=== PATIENT | female | born 1960 | race Caucasian/White ===

== ENCOUNTER 2017-12-21 21:48 | Emergency (ER) | payer BC ==
--- NOTE | 2017-12-21 21:54 | ER Report ---
History and Physical Time Seen By MD: 21:53 HPI/ROS CHIEF COMPLAINT: Headache, back pain HISTORY OF PRESENT ILLNESS: 57-year-old male with multiple medical problems traveling here to [facility] from [place] has been having a dull headache for 2 days. He's noting back pain in his thighs and lower back. He describes a dull aching. There is well. They seem to coincide. Patient notes no fever. He notes some mild photophobia and nausea. Patient's never had migraines. Patient states the headache began before the trip. He is grossly elevated blood pressure reading tonight. Was previously on medication for blood pressure but when he retired from work, his blood pressure dropped and his doctor stopped the medication. Patient notes no rhinitis, sore throat or coughing. Patient notes no chest pain or shortness of breath. Patient notes no leg swelling or calf pain. Patient took ibuprofen 800 mg without improvement of his symptoms. Patient's here for a wedding that will occur on Tuesday in 3 days. He wants to get checked out to make sure nothing makes his plans go to bad. REVIEW OF SYSTEMS: Respiratory: No cough, no dyspnea. Cardiovascular: No chest pain, no palpitations. Gastrointestinal: No vomiting, no abdominal pain. Musculoskeletal: As above Allergies: Coded Allergies: No Known Drug Allergies (Unverified , 12/21/17) Home Meds Active Scripts Tramadol Hcl (TRAMADOL HCL) 50 Mg Tablet, 1 TAB PO Q6H for PAIN, #15 MG TAKE ONE TABLETS BY MOUTH EVERY SIX HOURS NEEDED Prov:TAISHA WHYTE DO 12/21/17 Reported Medications Aspirin (ASPIRIN) 81 Mg Tab.chew, 81 MG PO QDAY, TAB.CHEW 12/21/17 Atorvastatin (LIPITOR) 80 Mg Tab, 1 TAB PO QDAY, TAB 12/21/17 Reviewed Nurses Notes: Yes Old Medical Records Reviewed: Yes Constitutional Vital Sign - Last 24 Hours 12/21/17 12/21/17 12/21/17 12/21/17 21:54 21:55 21:57 22:00 Temp 99.2 Pulse 96 Resp 17 B/P (MAP) 214/119 (150) 214/119 179/121 (140) 186/110 (135) Pulse Ox 96 O2 Delivery Room Air 12/21/17 12/21/17 12/21/17 22:30 22:48 23:00 Pulse 99 B/P (MAP) 162/98 (119) 154/96 (115) Pulse Ox 93 Physical Exam Vital signs stable, low-grade fever 99.2, pulse ox normal General Appearance: The patient is alert, has no immediate need for airway protection and no current signs of toxicity. Skin warm, dry, pink HEENT: Pupils equal and round no injection. Oropharynx without redness or exudate Respiratory: Chest is non tender, lungs are clear to auscultation. No chest wall tenderness Cardiac: regular rate and rhythm, no murmur Gastrointestinal: Abdomen is soft and non tender, no masses, bowel sounds normal. No CVA tenderness Musculoskeletal: Neck: Neck is supple and non tender. No lymphadenopathy, no meningismus Extremities have full range of motion and are non tender. No edema, no calf tenderness Skin: No rashes or lesions. DIFFERENTIAL DIAGNOSIS: After history and physical exam differential diagnosis was considered for back pain including but not limited to muscular pain, herniated disc, spine fracture, intra-abdominal causes and urinary tract infection. Additionally,headache including but not limited to subarachnoid hemorrhage, migraine headache, tension headache and infectious causes such as meningitis, pharyngitis and sinusitis. Medical Decision Making Data Points Result Diagram: 12/21/17215412/21/172154 Laboratory Hematology Test 12/21/17 21:55 12/21/17 22:20 Red Blood Count 5.23 M/uL (4.17-5.56) Mean Corpuscular Volume 86.1 fL (80.0-96.0) Mean Corpuscular Hemoglobin 30.2 pg (26.0-33.0) Mean Corpuscular Hemoglobin Concent 35.0 g/dL (32.0-36.0) Red Cell Distribution Width 14.1 % (11.5-14.5) Mean Platelet Volume 8.2 fL (7.2-11.1) Neutrophils (%) (Auto) 53.3 % (39.4-72.5) Lymphocytes (%) (Auto) 34.8 % (17.6-49.6) Monocytes (%) (Auto) 8.0 % (4.1-12.4) Eosinophils (%) (Auto) 3.6 % (0.4-6.7) Basophils (%) (Auto) 0.3 % (0.3-1.4) Nucleated RBC Relative Count (auto) 0.1 /100WBC Neutrophils # (Auto) 4.4 K/uL (2.0-7.4) Lymphocytes # (Auto) 2.9 K/uL (1.3-3.6) Monocytes # (Auto) 0.7 K/uL (0.3-1.0) Eosinophils # (Auto) 0.3 K/uL (0.0-0.5) Basophils # (Auto) 0.0 K/uL (0.0-0.1) Nucleated RBC Absolute Count (auto) 0.01 K/uL Erythrocyte Sedimentation Rate 2 mm/HOUR (0-30) D-Dimer Quantitative (PE/DVT) 0.39 ug/ml (0-0.50) Sodium Level 141 mmol/L (137-145) Potassium Level 3.4 mmol/L (3.5-5.0) Chloride Level 100 mmol/L (98-107) Carbon Dioxide Level 32 mmol/L (22-31) Blood Urea Nitrogen 14 mg/dl (7-18) Creatinine 1.10 mg/dl (0.52-1.04) Glomerular Filtration Rate Calc 51.0 Random Glucose 178 mg/dl (75-110) Calcium Level 9.2 mg/dl (8.4-10.2) Total Bilirubin 0.6 mg/dl (0.2-1.3) Aspartate Amino Transf (AST/SGOT) 50 U/L (0-35) Alanine Aminotransferase (ALT/SGPT) 75 U/L (0-56) Alkaline Phosphatase 70 U/L (0-126) Total Protein 7.2 g/dl (6.3-8.2) Albumin 4.1 g/dl (3.5-5.0) Urine Color Straw Urine Clarity Clear Urine pH 7.0 pH (4.8-9.5) Urine Specific [place] 1.013 Urine Protein Negative mg/dL (NEGATIVE) Urine Glucose (UA) 50 mg/dL (NEGATIVE) Urine Ketones Negative mg/dL (NEGATIVE) Urine Blood Negative (NEGATIVE) Urine Nitrite Negative (NEGATIVE) Urine Bilirubin Negative (NEGATIVE) Urine Urobilinogen Negative mg/dL (0.2-1.9) Urine Leukocyte Esterase Negative (NEGATIVE) Urine RBC <1 /HPF (0-2/HPF) Urine WBC <1 /HPF (0-5/HPF) Urine Squamous Epithelial Cells None /LPF (</=FEW) Urine Bacteria Negative /HPF (NONE-FEW) Urine Mucus None /HPF (NONE-FEW) Chemistry Test 12/21/17 21:55 12/21/17 22:20 White Blood Count 8.2 k/uL (4.5-11.0) Red Blood Count 5.23 M/uL (4.17-5.56) Hemoglobin 15.8 g/dL (12.0-16.0) Hematocrit 45.0 % (34.0-47.0) Mean Corpuscular Volume 86.1 fL (80.0-96.0) Mean Corpuscular Hemoglobin 30.2 pg (26.0-33.0) Mean Corpuscular Hemoglobin Concent 35.0 g/dL (32.0-36.0) Red Cell Distribution Width 14.1 % (11.5-14.5) Platelet Count 186 K/uL (150-450) Mean Platelet Volume 8.2 fL (7.2-11.1) Neutrophils (%) (Auto) 53.3 % (39.4-72.5) Lymphocytes (%) (Auto) 34.8 % (17.6-49.6) Monocytes (%) (Auto) 8.0 % (4.1-12.4) Eosinophils (%) (Auto) 3.6 % (0.4-6.7) Basophils (%) (Auto) 0.3 % (0.3-1.4) Nucleated RBC Relative Count (auto) 0.1 /100WBC Neutrophils # (Auto) 4.4 K/uL (2.0-7.4) Lymphocytes # (Auto) 2.9 K/uL (1.3-3.6) Monocytes # (Auto) 0.7 K/uL (0.3-1.0) Eosinophils # (Auto) 0.3 K/uL (0.0-0.5) Basophils # (Auto) 0.0 K/uL (0.0-0.1) Nucleated RBC Absolute Count (auto) 0.01 K/uL Erythrocyte Sedimentation Rate 2 mm/HOUR (0-30) D-Dimer Quantitative (PE/DVT) 0.39 ug/ml (0-0.50) Glomerular Filtration Rate Calc 51.0 Calcium Level 9.2 mg/dl (8.4-10.2) Total Bilirubin 0.6 mg/dl (0.2-1.3) Aspartate Amino Transf (AST/SGOT) 50 U/L (0-35) Alanine Aminotransferase (ALT/SGPT) 75 U/L (0-56) Alkaline Phosphatase 70 U/L (0-126) Total Protein 7.2 g/dl (6.3-8.2) Albumin 4.1 g/dl (3.5-5.0) Urine Color Straw Urine Clarity Clear Urine pH 7.0 pH (4.8-9.5) Urine Specific [place] 1.013 Urine Protein Negative mg/dL (NEGATIVE) Urine Glucose (UA) 50 mg/dL (NEGATIVE) Urine Ketones Negative mg/dL (NEGATIVE) Urine Blood Negative (NEGATIVE) Urine Nitrite Negative (NEGATIVE) Urine Bilirubin Negative (NEGATIVE) Urine Urobilinogen Negative mg/dL (0.2-1.9) Urine Leukocyte Esterase Negative (NEGATIVE) Urine RBC <1 /HPF (0-2/HPF) Urine WBC <1 /HPF (0-5/HPF) Urine Squamous Epithelial Cells None /LPF (</=FEW) Urine Bacteria Negative /HPF (NONE-FEW) Urine Mucus None /HPF (NONE-FEW) Coagulation Test 12/21/17 21:55 D-Dimer Quantitative (PE/DVT) 0.39 ug/ml Urinalysis Test 12/21/17 22:20 Urine Color Straw Urine Clarity Clear Urine pH 7.0 pH (4.8-9.5) Urine Specific [place] 1.013 Urine Protein Negative mg/dL (NEGATIVE) Urine Glucose (UA) 50 mg/dL (NEGATIVE) Urine Ketones Negative mg/dL (NEGATIVE) Urine Blood Negative (NEGATIVE) Urine Nitrite Negative (NEGATIVE) Urine Bilirubin Negative (NEGATIVE) Urine Urobilinogen Negative mg/dL (0.2-1.9) Urine Leukocyte Esterase Negative (NEGATIVE) Urine RBC <1 /HPF (0-2/HPF) Urine WBC <1 /HPF (0-5/HPF) Urine Squamous Epithelial Cells None /LPF (</=FEW) Urine Bacteria Negative /HPF (NONE-FEW) Urine Mucus None /HPF (NONE-FEW) ED Course/Re-evaluation Clinical Indication for ER IV: IV Access ED Course Patient was admitted to an examination room. H&P was done. The differential diagnoses was considered. On clinical examination. Patient has limited findings. His vital signs are stable. He has low-grade fever. His clinical presentation is that of viral syndrome. He has a dull mild headache for several days. He's had leg and muscle pain. Patient's been getting little relief from ibuprofen. He is given a prescription for tramadol. His diagnostic studies are negative and reviewed with him. Decision to Disposition Date: Dec 21, 2017 Decision to Disposition Time: 23:20 Depart Departure Latest Vital Signs Vital Signs Date Time Temp Pulse Resp B/P (MAP) Pulse Ox O2 Delivery O2 Flow Rate FiO2 12/21/17 23:00 154/96 (115) 12/21/17 22:48 99 93 12/21/17 21:55 99.2 17 Room Air Impression: Primary Impression: Headache Additional Impressions: Generalized body aches Hyperglycemia Viral syndrome Condition: Improved Disposition: HOME OR SELF-CARE New Scripts Tramadol Hcl (TRAMADOL HCL) 50 Mg Tablet 1 TAB PO Q6H for PAIN, #15 MG TAKE ONE TABLETS BY MOUTH EVERY SIX HOURS NEEDED Prov: TAISHA WHYTE DO 12/21/17 Patient Instructions: Prediabetes (ED), Viral Syndrome (ED) Additional Instructions: Increase your fluid intake Alternate ibuprofen and Tylenol 650 mg for symptom relief Use tramadol as needed for additional relief. Follow-up with your primary care doctor upon returning home Problem Qualifiers Primary Impression: Headache Headache type: unspecified Headache chronicity pattern: acute headache Intractability: not intractable Qualified Codes: R51 - Headache TAISHA WHYTE DO Dec 21, 2017 21:54
[2017-12-21] MEDS ORDERED: ASPI81TA94 PO (22:13)
[2017-12-21] MEDS ORDERED: ATR80PT PO (22:13)
[2017-12-21 22:26] LABS: PLATELET COUNT, AUTOMATED 186 K/uL (150-450)
[2017-12-21 23:00] VITALS: BP 154/96
[2017-12-21] MEDS ORDERED: TRAM-420 PO (23:25)
[2017-12-21] MEDS ORDERED: DEXAMETHASONE 4 MG TAB PO ONE (23:30)
[2017-12-21] MEDS ORDERED: traMADol 50 MG TAB TH 2 TAB/BOTTLE PO ONE (23:30)
== END 2017-12-21 23:33 | disposition home or self-care (01) ==
LOC: ER 21:55
DX: B34.9 Viral infection, unspecified (principal); R73.9 Hyperglycemia, unspecified
CPT/HCPCS: 81001; 85025; 85379; 85651; 99283; C9399; 82040; 82247; 82310; 82374; 82435; 82565; 82947; 84075; 84132; 84155; 84295; 84450; 84460; 84520